=== PATIENT | male | born 1950 | race Caucasian/White ===

== ENCOUNTER 2021-08-16 11:47 | Inpatient (IN) ==
[2021-08-16 12:41] LABS: Basophils % 0.9 % (0.0-0.8); Eosinophils % 0.3 % (0.00-10.9); Hematocrit 45.5 VOL% (42.0-52.0); Hemoglobin 15.4 GM/DL (14.0-18.0); Immature Granulocytes % 0.3 %; Immature Granulocytes Absolute 0.01 #; Lymphocytes # 1.3 10*3/uL (1.4-4.0); Mean Corpuscular HGB Conc 33.8 GM/DL (32-36); Mean Corpuscular Volume 87.2 FL (87-102); Mean Platelet Volume 10.9 FL (9.6-12.0); Monocytes # 0.4 10*3/uL (0.11-0.8); Monocytes % 11.8 % (1.7-12.7); Neutrophils % 46.7 % (38.7-73.9); Platelet Count 211 T/CUMM (130-400); Red Blood Count 5.22 MC/CUMM (3.8-5.5); Red Cell Distribution Width 13.6 % (9.3-17.3); White Blood Count 3.3 T/CUMM (4-12)
[2021-08-16 13:01] LABS: Calcium 9.6 MG/DL (8.5-10.1); Osmolality,Calculated 276.4 MOS/KG (273-304); PT Patient Result 10.9 SECS (10.5-12.0); Partial Thromboplastin Time 27.5 SECS (23.8-32.1); Potassium 3.8 MMOL/L (3.5-5.1)
[2021-08-16] MEDS ORDERED: cefTRIAXone 1,000 MG in SODIUM CHLORIDE 0.9% 100 ML IV STA (13:56)
[2021-08-16] MEDS ORDERED: VANCOMYCIN INJ 1,000 MG in SODIUM CHLORIDE 0.9% 250 ML IV STA (13:56)
[2021-08-16] MEDS ORDERED: hydrALAZINE 20 MG/1 ML VIAL IM STA (14:37)
[2021-08-16] MEDS ORDERED: ONDANSETRON 4 MG/2 ML VIAL IV PRN (15:53)
[2021-08-16] MEDS ORDERED: GLUCAGON 1 MG VIAL IM PRN (15:53)
[2021-08-16] MEDS ORDERED: DOCUSATE SODIUM 100 MG CAPSULE PO PRN (15:53)
[2021-08-16] MEDS ORDERED: SIMETHICONE CHEW 125 MG TABLET PO PRN (15:53)
[2021-08-16] MEDS ORDERED: hydrALAZINE 20 MG/1 ML VIAL IV PRN ×3 (15:53→20:26)
[2021-08-16] MEDS ORDERED: ACETAMINOPHEN 325 MG TABLET PO PRN (15:53)
[2021-08-16] MEDS ORDERED: DEXTROSE 10% 250 ML BAG IV PRN (15:58)
[2021-08-16] MEDS ORDERED: amLODIPine 5 MG TABLET PO SCH (16:30)
[2021-08-16] MEDS: INSULIN LISPRO 100 UNIT/ML SUBCUT SCH ×2 (16:30→20:51)
[2021-08-16] MEDS: ENOXAPARIN 40 MG/0.4 ML SYRINGE SUBCUT SCH (16:37)
[2021-08-16] MEDS: lisinopriL 10 MG TABLET PO SCH ×2 (16:37→20:51)
[2021-08-16] MEDS ORDERED: amLODIPine 5 MG TABLET PO ONE (16:41)
[2021-08-16] MEDS: ASPIRIN 325 MG TABLET PO SCH (20:48)
[2021-08-16] MEDS: TAMSULOSIN 0.4 MG CAPSULE PO SCH (20:48)
[2021-08-16] MEDS: amLODIPine 5 MG TABLET PO SCH (20:51)
[2021-08-17] MEDS: VANCOMYCIN INJ 1,500 MG in SODIUM CHLORIDE 0.9% 500 ML IV SCH ×2 (02:09→15:29)
[2021-08-17] MEDS ORDERED: VANCOMYCIN INJ 1,000 MG in SODIUM CHLORIDE 0.9% 250 ML IV SCH (04:00)
[2021-08-17 05:51] LABS: Basophils % 0.5 % (0.0-0.8); Hematocrit 41.2 VOL% (42.0-52.0); Hemoglobin 13.8 GM/DL (14.0-18.0); Immature Granulocytes % 0.5 %; Immature Granulocytes Absolute 0.02 #; Lymphocytes # 1.6 10*3/uL (1.4-4.0); Lymphocytes % 39.2 % (21.2-54.2); Mean Corpuscular HGB Conc 33.5 GM/DL (32-36); Mean Corpuscular Volume 88.2 FL (87-102); Mean Platelet Volume 11.1 FL (9.6-12.0); Monocytes # 0.5 10*3/uL (0.11-0.8); Monocytes % 12.8 % (1.7-12.7); Platelet Count 187 T/CUMM (130-400); Red Blood Count 4.67 MC/CUMM (3.8-5.5); White Blood Count 4.1 T/CUMM (4-12)
[2021-08-17 06:05] LABS: Albumin 3.1 G/DL (3.4-5.0); Bilirubin,Total 0.6 MG/DL (0.20-1.00); Calcium 8.5 MG/DL (8.5-10.1); Potassium 3.8 MMOL/L (3.5-5.1); Total Protein 6.9 G/DL (6.4-8.2)
[2021-08-17] MEDS: INSULIN LISPRO 100 UNIT/ML SUBCUT SCH ×2 (07:35→11:52)
[2021-08-17] MEDS: ENOXAPARIN 40 MG/0.4 ML SYRINGE SUBCUT SCH (08:50)
[2021-08-17] MEDS: PANTOPRAZOLE 40 MG TABLET PO SCH (08:50)
[2021-08-17] MEDS ORDERED: cefTRIAXone 1,000 MG in SODIUM CHLORIDE 0.9% 100 ML IV SCH (14:00)
[2021-08-17] MEDS: MULTIVITAMIN (CENTRUM) TABLET PO SCH (15:29)
[2021-08-17] MEDS: ASPIRIN 325 MG TABLET PO SCH (20:48)
[2021-08-17] MEDS: lisinopriL 10 MG TABLET PO SCH (20:48)
[2021-08-17] MEDS: amLODIPine 5 MG TABLET PO SCH (20:48)
[2021-08-17] MEDS: TAMSULOSIN 0.4 MG CAPSULE PO SCH (20:48)
[2021-08-18] MEDS: VANCOMYCIN INJ 1,500 MG in SODIUM CHLORIDE 0.9% 500 ML IV SCH ×2 (03:06→15:50)
[2021-08-18 05:36] LABS: Basophils % 0.7 % (0.0-0.8); Eosinophils % 0.4 % (0.00-10.9); Hematocrit 40.2 VOL% (42.0-52.0); Hemoglobin 13.5 GM/DL (14.0-18.0); Immature Granulocytes % 0.4 %; Immature Granulocytes Absolute 0.01 #; Lymphocytes # 1.4 10*3/uL (1.4-4.0); Lymphocytes % 52.6 % (21.2-54.2); Mean Corpuscular HGB Conc 33.6 GM/DL (32-36); Mean Corpuscular Volume 87.8 FL (87-102); Mean Platelet Volume 10.6 FL (9.6-12.0); Monocytes # 0.4 10*3/uL (0.11-0.8); Monocytes % 14.2 % (1.7-12.7); Neutrophils % 31.7 % (38.7-73.9); Platelet Count 186 T/CUMM (130-400); Red Blood Count 4.58 MC/CUMM (3.8-5.5); Red Cell Distribution Width 13.5 % (9.3-17.3); White Blood Count 2.7 T/CUMM (4-12)
[2021-08-18 05:48] LABS: Albumin 3.1 G/DL (3.4-5.0); Bilirubin,Total 0.5 MG/DL (0.20-1.00); Calcium 8.3 MG/DL (8.5-10.1); Potassium 3.8 MMOL/L (3.5-5.1); Total Protein 6.9 G/DL (6.4-8.2)
[2021-08-18 09:43] LABS: Anisocytosis Slight; Atypical Lymphocytes Few; Lymphocytes 58 % (20-55); Platelet Estimate Adequate; Reactive Lymphocytes Few; Total Cells Counted 100
[2021-08-18] MEDS: PANTOPRAZOLE 40 MG TABLET PO SCH (09:43)
[2021-08-18] MEDS: MULTIVITAMIN (CENTRUM) TABLET PO SCH (09:43)
[2021-08-18] MEDS: ENOXAPARIN 40 MG/0.4 ML SYRINGE SUBCUT SCH (09:44)
[2021-08-18] MEDS ORDERED: cefTRIAXone 2,000 MG in SODIUM CHLORIDE 0.9% 100 ML IV SCH (13:00)
[2021-08-18] MEDS: amLODIPine 5 MG TABLET PO SCH (21:19)
[2021-08-18] MEDS: ASPIRIN 325 MG TABLET PO SCH (21:19)
[2021-08-18] MEDS: TAMSULOSIN 0.4 MG CAPSULE PO SCH (21:19)
[2021-08-18] MEDS: lisinopriL 10 MG TABLET PO SCH (21:20)
[2021-08-19] MEDS: VANCOMYCIN INJ 1,500 MG in SODIUM CHLORIDE 0.9% 500 ML IV SCH (03:27)
[2021-08-19 05:52] LABS: Basophils % 1.1 % (0.0-0.8); Eosinophils % 0.4 % (0.00-10.9); Hematocrit 39.5 VOL% (42.0-52.0); Hemoglobin 13.3 GM/DL (14.0-18.0); Immature Granulocytes % 1.1 %; Immature Granulocytes Absolute 0.03 #; Lymphocytes # 1.5 10*3/uL (1.4-4.0); Lymphocytes % 51.4 % (21.2-54.2); Mean Corpuscular HGB Conc 33.7 GM/DL (32-36); Mean Corpuscular Volume 87.6 FL (87-102); Mean Platelet Volume 10.8 FL (9.6-12.0); Monocytes # 0.4 10*3/uL (0.11-0.8); Monocytes % 12.7 % (1.7-12.7); Neutrophils % 33.3 % (38.7-73.9); Platelet Count 188 T/CUMM (130-400); Red Blood Count 4.51 MC/CUMM (3.8-5.5); Red Cell Distribution Width 13.5 % (9.3-17.3); White Blood Count 2.8 T/CUMM (4-12)
[2021-08-19 07:12] LABS: Lymphocytes 45 % (20-55); Platelet Estimate Adequate; Total Cells Counted 100
[2021-08-19 08:52] VITALS: BP 163/78
[2021-08-19] MEDS: PANTOPRAZOLE 40 MG TABLET PO SCH (08:57)
[2021-08-19] MEDS: MULTIVITAMIN (CENTRUM) TABLET PO SCH (08:57)
[2021-08-19] MEDS: ENOXAPARIN 40 MG/0.4 ML SYRINGE SUBCUT SCH (08:57)
== END 2021-08-19 12:17 | disposition home or self-care (01) | DRG 603 ==
LOC: N.ED 11:47 → N.EDINP 15:53 → SUATTDRO 15:53 → N.3E 17:02
PROVIDERS: ADMIT Internal Medicine; ATTEND Internal Medicine